=== PATIENT | male | born 1980 | race Caucasian/White ===

== ENCOUNTER → 2020-02-12 13:44 | Outpatient (BNVA) | payer SELFPAY | PROVIDERS: Visit Provider Orthopaedic Surgery | DX: S97.82XA Crushing injury of left foot, initial encounter (principal) | CPT/HCPCS: 99213 ==

== ENCOUNTER → 2020-03-04 10:50 | Outpatient (BNVA) | payer OTHER, SELFPAY | PROVIDERS: Visit Provider Orthopaedic Surgery | DX: S92.245A Nondisplaced fracture of medial cuneiform of left foot, initial encounter for closed fracture (principal); S97.82XA Crushing injury of left foot, initial encounter; X58.XXXA Exposure to other specified factors, initial encounter; Y93.9 Activity, unspecified; Y92.9 Unspecified place or not applicable; Y99.8 Other external cause status | CPT/HCPCS: 99213 ==